=== PATIENT | female | born 1995 | race Caucasian/White ===

== ENCOUNTER 2024-10-22 10:49 | Outpatient (RCR) | payer BC, SELFPAY ==
[2024-10-01 11:40] VITALS: BP 121/82
[2024-10-01] MEDS: NSS 250 IV (11:50)
[2024-10-01] MEDS: VENOFER 110 MG IV (11:50)
[2024-10-01 12:55] VITALS: BP 124/86
[2024-10-08] MEDS: NSS 250 IV (11:09)
[2024-10-08] MEDS: VENOFER 110 MG IV (11:10)
[2024-10-08 11:13] VITALS: BP 120/83
[2024-10-08 12:15] VITALS: BP 124/82
[2024-10-15 10:55] VITALS: BP 126/73
[2024-10-15] MEDS: NSS 250 IV (11:09)
[2024-10-15] MEDS: VENOFER 110 MG IV (11:09)
[2024-10-15 12:16] VITALS: BP 121/74
[2024-10-22 11:00] VITALS: BP 116/77
[2024-10-22] MEDS: NSS 250 IV (11:19)
[2024-10-22] MEDS: VENOFER 110 MG IV (11:20)
[2024-10-22 12:55] VITALS: BP 121/78
== END 2024-10-22 23:59 | disposition home or self-care (01) ==
LOC: OID 10:49
PROVIDERS: ATTENDING PHYSICIAN Hospitalist
DX: D50.9 Iron deficiency anemia, unspecified (principal); E61.1 Iron deficiency
CPT/HCPCS: 96361; 96365; J1756

== ENCOUNTER 2024-11-07 10:05 | Outpatient (RCR) | payer BC, SELFPAY ==
[2024-11-07 10:14] VITALS: BP 122/80
[2024-11-07] MEDS: NSS 250 IV (10:27)
[2024-11-07] MEDS: VENOFER 110 MG IV (10:28)
[2024-11-07 11:35] VITALS: BP 124/82
== END 2024-11-08 09:11 | disposition home or self-care (01) ==
LOC: OID 10:05
PROVIDERS: ATTENDING PHYSICIAN Hospitalist
DX: D50.9 Iron deficiency anemia, unspecified (principal); E55.9 Vitamin D deficiency, unspecified; E61.1 Iron deficiency
CPT/HCPCS: 96365; J1756